=== PATIENT | female | born 1970 | race Two or more races ===

== ENCOUNTER 2021-06-05 12:27 | Emergency (ER) | payer OTHER ==
[2021-06-05] MEDS ORDERED: BUFFERED LIDOCAINE 10 ML SYRINGE SUBQ STA (13:08)
--- NOTE | 2021-06-05 13:10 | ED Physician Documentation ---
History of Present Illness - Stated complaint Stated Complaint: UP BACK PX - Chief complaint Chief Complaint: Wound - Additonal information Additional information: 50-year-old female presents emergency department for evaluation of recurrent l eft upper back sebaceous cyst abscess. She has had this drained about 1 year ago at a local walk-in clinic. This reoccurred over the last few days. She was seen at walk-in yesterday placed on antibiotics and referred to general surgery to have this is fully excised. However despite starting the antibiotics it has gotten progressively larger more tender to touch. No drainage or fevers. Denies any history of diabetes. Review of Systems Constitutional: denies: Fever, Chills Eyes: reports: Reviewed and negative Ears: reports: Reviewed and negative Nose: reports: Reviewed and negative GI: reports: Reviewed and negative : reports: Reviewed and negative Skin: reports: Other (Abscess left upper back). denies: Rash Musculoskeletal: reports: Reviewed and negative PD PAST MEDICAL HISTORY - Present Medications Home Medications: Ambulatory Orders Medication Instructions Recorded Confirmed HYDROcod/ACETAM 5/325 [Monhegan 5/325] 1 tablet PO BID PRN #10 tablet 06/05/21 - Allergies Allergies/Adverse Reactions: Allergies Allergy/AdvReac Type Severity Reaction Status Date / Time No Known Drug Allergies Allergy Verified 06/05/21 13:04 PD ED PE EXPANDED - General General: Alert, No acute distress - Back Back: Other (3 x 2 cm left upper back abscess with palpable fluctuance but no drainage. Minimal surrounding erythema.) - Extremities Extremities: Normal. No: Deformity, Tenderness - Neuro Neuro: Alert and Oriented X 3, CNII-XII intact Results - Vitals Vitals: Vital Signs - 24 hr 06/05/21 13:00 Temperature 36.2 C L Heart Rate 69 Respiratory 16 Rate Blood Pressure 134/76 H O2 Saturation 100 Procedures - Abscess I&D (location) left upper back sebacious cyst abscess Preparation: Betadine, Lidocaine 1% Incision: Incised with scalpel, Purulent drainage, Loculations broken, Irrigated Other: Pt tolerated well, Dressing applied PD MEDICAL DECISION MAKING - ED course Complexity details: reviewed results, considered differential, d/w patient, d/w family ED course: 50-year-old female presents emergency department for evaluation and treatment of a recurrent left upper back abscess that is a sebaceous gland that has become recurrently infected. Currently on antibiotics prescribed by outpatient walk-in clinic yesterday. Given worsening pain and swelling the sebaceous cyst abscess was opened today at the bedside. It was not packed however. Patient has been now referred to surgical services for longer-term evaluation and management. She is to continue the antibiotics. A limited prescription for Monhegan sent to the pharmacy. Emergent return precautions were discussed for worsening symptoms I am prescribing a short course of short-acting opioid pain medication for this patient. I have reviewed the patients [employer] and no concerning findings were noted. I have discussed that the opioids are for short term therapy only, and will not be refilled from the ED. Departure - Departure Disposition: Home, Self Care Clinical Impression: Sebaceous cyst, Abscess Condition: Stable Record reviewed to determine appropriate education?: Yes Instructions: ED Cyst Sebaceous Infec IandD Prescriptions: HYDROcod/ACETAM 5/325 [Monhegan 5/325] 1 tablet PO BID PRN #10 tablet PRN Reason: Pain Comments: You were seen today in the emergency department for recurrent abscess in your upper back. This is an infected sebaceous cyst/gland. Please continue to follow-up with your surgical referral. The entire capsule will need to be removed in order for this to not return. Please continue the antibiotics prescribed for you yesterday. You may shower normally and simply cover the wound with a bandage following that. If at any point you feel that the infection is worsening, you have increased redness swelling or fevers and please return to the ER for a second evaluation. I am prescribing a short course of narcotic pain medication for you. These are potentially dangerous and addictive medications that should be used carefully. These medications may constipate you. Take an gvxh-dim-hyqynig stool softener (docusate) twice daily with plenty of water while taking these medications. If you go 24 hours without a bowel movement, take dazb-xym-qnjdigx miralax, per package instructions. Do not drink or drive while taking these medications. If you received narcotic or sedating medications while in the emergency department, do not drive for 24 hours. Store this medication in a safe, secure place and out of reach of children. It is a violation of federal law to give or sell this medication to another person or to use in a manner other than prescribed. The ED will not refill narcotic prescriptions, including prescriptions lost or stolen. To dispose of unwanted medications: 1. [facility] at [address] in [place] has a medication drop box. They accept prescription medications (in pill form) Thursday through Thursday 9:00 a.m. to 5:00 p.m. 2. [facility] [employer] accepts prescription medications (in pill form only) for disposal year round. Call for more information. 3. Contact the [facility] for the next [facility] sponsored prescription drug collection event. , [phone], or x7310; Note that many narcotic pain relievers also contain Tylenol/acetaminophen. Please ensure that your total dose of acetaminophen from all sources does not exceed 3 g (3000 mg) per day.
[2021-06-05 14:17] VITALS: BP 138/78
== END 2021-06-05 14:17 | disposition home or self-care (01) ==
LOC: ED 12:27
DX: B43.2 Subcutaneous pheomycotic abscess and cyst (principal)
CPT/HCPCS: 10060